=== PATIENT | female | born 1990 ===

== ENCOUNTER 2018-12-20 18:10 | Inpatient (IN) | payer OTHER ==
[~2018-12-20] VITALS: Ht 167.6 cm; Wt 100.5 kg
[2018-12-20] MEDS ORDERED: HYDROmorphONE 0.5 MG/0.5 ML SYG IV PRN (20:30)
[2018-12-20] MEDS ORDERED: oxyCODONE 5 MG TAB PO PRN (20:30)
[2018-12-20 20:34] VITALS: BP 109/68; PULSE 64; RESP 18
[2018-12-20] MEDS: DOCUSATE SODIUM 100 MG CAP PO SCH (21:00)
[2018-12-20 21:09] VITALS: Ht 167.6 cm; Wt 100.5 kg
[2018-12-20] MEDS: METHOCARBAMOL 500 MG TAB PO SCH (21:42)
[2018-12-20] MEDS: ENOXAPARIN 30 MG/0.3 ML SYG SC SCH (21:47)
[2018-12-20] MEDS ORDERED: MAGNESIUM HYDROXIDE 30ML CUP PO PRN (22:30)
[2018-12-20] MEDS ORDERED: ONDANSETRON 4 MG INJ IV PRN (22:30)
[2018-12-20] MEDS ORDERED: LACTULOSE 30ML CUP PO PRN (22:30)
[2018-12-20] MEDS ORDERED: ACETAMINOPHEN 325 MG TAB PO PRN (22:30)
[2018-12-20] MEDS ORDERED: SENNA TAB PO PRN (22:30)
[2018-12-20] MEDS ORDERED: BISACODYL (EC) 5 MG TAB PO PRN (22:30)
[2018-12-20] MEDS ORDERED: BISACODYL 10 MG SUPP PR PRN (22:30)
[2018-12-20] MEDS: oxyCODONE 5 MG TAB PO PRN (23:02)
[2018-12-21] MEDS: IBUPROFEN 600 MG TAB PO SCH ×5 (00:01→23:54)
[2018-12-21 02:00] VITALS: BP 118/67; PULSE 68; RESP 18
[2018-12-21 07:00] VITALS: BP 93/45; PULSE 65; RESP 18
[2018-12-21] MEDS: oxyCODONE 5 MG TAB PO PRN ×2 (08:47→21:18)
[2018-12-21] MEDS: METHOCARBAMOL 500 MG TAB PO SCH ×3 (08:47→21:17)
[2018-12-21] MEDS: DOCUSATE SODIUM 100 MG CAP PO SCH ×2 (08:48→21:17)
[2018-12-21] MEDS: ENOXAPARIN 30 MG/0.3 ML SYG SC SCH ×2 (08:50→21:16)
[2018-12-21] MEDS: POLYETHYLENE GLYCOL 17 GM PACKET PO SCH ×3 (09:00→21:00)
[2018-12-21] MEDS ORDERED: DOCUSATE SODIUM 100 MG CAP PO SCH (09:00)
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
[2018-12-21] MEDS: MAGNESIUM HYDROXIDE 30ML CUP PO SCH (12:07)
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
[2018-12-21 14:00] VITALS: BP 93/49; PULSE 57; RESP 18
[2018-12-21 19:56] VITALS: BP 108/71; PULSE 72; RESP 18
[2018-12-22 02:47] VITALS: BP 119/77; PULSE 84; RESP 18
[2018-12-22] MEDS: IBUPROFEN 600 MG TAB PO SCH ×4 (06:18→23:51)
[2018-12-22 07:30] VITALS: BP 97/56; PULSE 60; RESP 18
[2018-12-22] MEDS: MAGNESIUM HYDROXIDE 30ML CUP PO SCH (09:00)
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
[2018-12-22] MEDS: POLYETHYLENE GLYCOL 17 GM PACKET PO SCH ×2 (09:47→20:37)
[2018-12-22] MEDS: DOCUSATE SODIUM 100 MG CAP PO SCH ×2 (09:47→20:34)
[2018-12-22] MEDS: METHOCARBAMOL 500 MG TAB PO SCH ×3 (09:47→20:35)
[2018-12-22] MEDS: ENOXAPARIN 30 MG/0.3 ML SYG SC SCH ×2 (09:56→20:38)
[2018-12-22] MEDS: oxyCODONE 5 MG TAB PO PRN ×3 (12:37→20:36)
--- NOTE | 2018-12-22 13:11 | PN ---
Date/Time of Note Date/Time of Note DATE: 12/22/18 TIME: 13:11 Objective Vital Signs Date Temp Pulse Resp B/P (MAP) Pulse Ox O2 O2 Flow FiO2 Time Delivery Rate 12/22/18 98.0 60 18 97/56 (70) 97 Room Air 07:30 Intake and Output 12/21/18 12/21/18 12/22/18 1515:00 23:00 07:00 IntakeIntake Total 1200 ml OutputOutput Total 800 ml BalanceBalance 400 ml Exam INTERDISCIPLINARY TEAM CONFERENCE Physical Exam: Pulm-cta Abd-soft BOWEL- Cont BLADDER-Cont SKIN- healing OT- DRESSING-min/max BATHING-mod/max TOILETING-mod PT- BED MOBILITY-min/mod TRANSFERS-mod/min AMBULATION-min 100 feet SPEECH- COGNITION- full assessment pending A/P- Interdisciplinary team conference held today. Please see interdisciplinary sheet. Working toward d.c. on 12/27 with post discharge follow up of physical therapy, occupational therapy. Results/Medications Result Diagram: 12/22/18 0638 12/22/18 0637 Results 24 hrs Laboratory Tests Test 12/22/18 06:37 12/22/18 06:38 Sodium Level 139 Potassium Level 4.4 Chloride Level 107 Carbon Dioxide Level 27 Anion Gap 5 Blood Urea Nitrogen 17 Creatinine 0.64 Est Glomerular Filtrat Rate mL/min > 60 Glucose Level 91 Calcium Level 9.3 Phosphorus Level 4.6 Magnesium Level 2.2 White Blood Count 6.6 Red Blood Count 3.47 L Hemoglobin 10.2 L Hematocrit 32.7 L Mean Corpuscular Volume 94.2 Mean Corpuscular Hemoglobin 29.4 Mean Corpuscular Hemoglobin Concent 31.2 L Red Cell Distribution Width 13.8 Platelet Count 498 H Mean Platelet Volume 10.5 H Immature Granulocytes % 1.400 H Neutrophils % 49.6 Lymphocytes % 30.2 Monocytes % 14.7 H Eosinophils % 3.6 Basophils % 0.5 Nucleated Red Blood Cells % 0.0 Immature Granulocytes # 0.090 H Neutrophils # 3.3 Lymphocytes # 2.0 Monocytes # 1.0 H Eosinophils # 0.2 Basophils # 0.0 Nucleated Red Blood Cells # 0.0 Medications Current Medications Docusate Sodium (Colace) 100 mg BID PO Last administered on 12/22/18at 09:47; Admin Dose 100 MG; Start 12/20/18 at 21:00 Enoxaparin Sodium (Lovenox) 30 mg BID SC Last administered on 12/22/18at 09:56; Admin Dose 30 MG; Start 12/20/18 at 21:00 Ibuprofen (Motrin) 600 mg Q6 PO Last administered on 12/22/18at 12:08; Admin Dose 600 MG; Start 12/21/18 at 00:00 Methocarbamol (Robaxin) 500 mg TID PO Last administered on 12/22/18at 12:08; Admin Dose 500 MG; Start 12/20/18 at 21:00 Oxycodone HCl (Roxicodone) 5 mg Q4H PRN PO MILD PAIN LEVEL 1-3; Start 12/20/18 at 20:30 Oxycodone HCl (Roxicodone) 10 mg Q4H PRN PO MODERATE PAIN LEVEL 4-6 Last administered on 12/22/18at 12:37; Admin Dose 10 MG; Start 12/20/18 at 20:30 Magnesium Hydroxide (Milk Of Mag) 30 ml BID PRN PO CONSTIPATION; Start 12/20/18 at 22:30 Lactulose (Enulose) 20 gm DAILY PRN PO CONSTIPATION; Start 12/20/18 at 22:30 Bisacodyl (Dulcolax Supp) 10 mg DAILY PRN [place] CONSTIPATION; Start 12/20/18 at 22:30 Acetaminophen (Tylenol Tab) 650 mg Q4H PRN PO PAIN; Start 12/20/18 at 22:30 Bisacodyl (Dulcolax) 5 mg DAILY PRN PO CONSTIPATION; Start 12/20/18 at 22:30 Ondansetron HCl (Zofran Tab) 4 mg Q6H PRN PO NAUSEA AND/OR VOMITING; Start 12/20/18 at 22:30 Ondansetron HCl (Zofran Inj) 4 mg Q6H PRN IV NAUSEA AND/OR VOMITING; Start 12/20/18 at 22:30 Senna (Senokot) 1 tab HS PRN PO CONSTIPATION; Start 12/20/18 at 22:30 Polyethylene Glycol (Miralax) 17 gm BID PO ; Start 12/22/18 at 21:00 ARASH OATES MD Dec 22, 2018 13:11
[2018-12-22 14:00] VITALS: BP 107/60; PULSE 76; RESP 18
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
[2018-12-22 19:54] VITALS: BP 121/58; PULSE 72; RESP 18
[2018-12-23 02:00] VITALS: BP 116/62; PULSE 68; RESP 18
[2018-12-23] MEDS: oxyCODONE 5 MG TAB PO PRN ×4 (04:11→21:01)
[2018-12-23] MEDS: IBUPROFEN 600 MG TAB PO SCH ×4 (06:35→23:58)
[2018-12-23 07:00] VITALS: BP 98/52; PULSE 58; RESP 18
[2018-12-23 08:59] VITALS: BP 99/59; PULSE 68
[2018-12-23] MEDS: POLYETHYLENE GLYCOL 17 GM PACKET PO SCH ×2 (09:00→20:53)
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
[2018-12-23] MEDS: METHOCARBAMOL 500 MG TAB PO SCH ×3 (10:06→20:53)
[2018-12-23] MEDS: DOCUSATE SODIUM 100 MG CAP PO SCH ×2 (10:07→20:53)
[2018-12-23] MEDS: ENOXAPARIN 30 MG/0.3 ML SYG SC SCH ×2 (10:09→20:54)
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
[2018-12-23 14:00] VITALS: BP 84/53; PULSE 78; RESP 18
[2018-12-23 15:30] VITALS: BP 102/63; PULSE 70
[2018-12-23 19:47] VITALS: BP 100/53; PULSE 69; RESP 17
[2018-12-24] MEDS: IBUPROFEN 600 MG TAB PO SCH ×4 (06:41→23:47)
[2018-12-24 07:00] VITALS: BP 94/51; PULSE 64; RESP 18
[2018-12-24] MEDS: METHOCARBAMOL 500 MG TAB PO SCH ×3 (08:16→20:39)
[2018-12-24] MEDS: DOCUSATE SODIUM 100 MG CAP PO SCH ×2 (08:16→20:36)
[2018-12-24] MEDS: POLYETHYLENE GLYCOL 17 GM PACKET PO SCH ×2 (08:16→20:43)
[2018-12-24] MEDS: oxyCODONE 5 MG TAB PO PRN ×3 (08:17→20:37)
[2018-12-24] MEDS: ENOXAPARIN 30 MG/0.3 ML SYG SC SCH ×2 (08:19→20:39)
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
[2018-12-24 14:00] VITALS: BP 89/64; PULSE 68; RESP 18
[2018-12-24 20:10] VITALS: BP 99/54; PULSE 66; RESP 18
[2018-12-25] MEDS: IBUPROFEN 600 MG TAB PO SCH ×3 (06:22→17:44)
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
[2018-12-25 08:00] VITALS: BP 107/71; PULSE 54; RESP 18
[2018-12-25] MEDS: POLYETHYLENE GLYCOL 17 GM PACKET PO SCH ×2 (08:52→21:00)
[2018-12-25] MEDS: METHOCARBAMOL 500 MG TAB PO SCH ×3 (08:53→20:13)
[2018-12-25] MEDS: oxyCODONE 5 MG TAB PO PRN ×3 (08:53→19:38)
[2018-12-25] MEDS: DOCUSATE SODIUM 100 MG CAP PO SCH ×2 (08:53→20:14)
[2018-12-25] MEDS: ENOXAPARIN 30 MG/0.3 ML SYG SC SCH ×2 (08:56→20:13)
[2018-12-25 14:00] VITALS: BP 118/60; PULSE 88; RESP 18
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
[2018-12-25 19:13] VITALS: BP 116/59; PULSE 64; RESP 18
[2018-12-26] MEDS: IBUPROFEN 600 MG TAB PO SCH ×5 (00:32→23:55)
[2018-12-26] MEDS: oxyCODONE 5 MG TAB PO PRN ×3 (00:42→21:04)
[2018-12-26 02:00] VITALS: BP 112/65; PULSE 68; RESP 18
[2018-12-26 07:00] VITALS: BP 90/52; PULSE 64; RESP 18
[2018-12-26] MEDS: POLYETHYLENE GLYCOL 17 GM PACKET PO SCH ×3 (09:00→23:57)
[2018-12-26] MEDS: DOCUSATE SODIUM 100 MG CAP PO SCH ×2 (09:44→21:04)
[2018-12-26] MEDS: METHOCARBAMOL 500 MG TAB PO SCH ×3 (09:44→21:04)
[2018-12-26] MEDS: ENOXAPARIN 30 MG/0.3 ML SYG SC SCH ×2 (09:46→21:06)
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
[2018-12-26] MEDS: ONDANSETRON 4 MG TAB PO PRN (12:51)
[2018-12-26 14:00] VITALS: BP 101/63; PULSE 69; RESP 18
[2018-12-26 20:00] VITALS: BP 106/59; PULSE 60; RESP 18
[2018-12-27 02:00] VITALS: BP 151/62; PULSE 82; RESP 18
[2018-12-27] MEDS: IBUPROFEN 600 MG TAB PO SCH ×4 (06:00→23:58)
[2018-12-27] MEDS: oxyCODONE 5 MG TAB PO PRN ×2 (06:15→17:54)
[2018-12-27 07:30] VITALS: BP 94/50; PULSE 54; RESP 18
[2018-12-27] MEDS: POLYETHYLENE GLYCOL 17 GM PACKET PO SCH ×2 (09:01→20:31)
[2018-12-27] MEDS: METHOCARBAMOL 500 MG TAB PO SCH ×3 (09:01→20:29)
[2018-12-27] MEDS: DOCUSATE SODIUM 100 MG CAP PO SCH ×2 (09:01→20:29)
[2018-12-27] MEDS: ENOXAPARIN 30 MG/0.3 ML SYG SC SCH ×2 (09:02→20:30)
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
[2018-12-27] MEDS: DICLOFENAC SODIUM 1% GEL 100 GM TUBE TP SCH ×3 (12:18→20:32)
[2018-12-27 14:00] VITALS: BP 95/55; PULSE 62; RESP 18
[2018-12-27 19:59] VITALS: BP 116/70; PULSE 86; RESP 18
[2018-12-27] MEDS ORDERED: MELATONIN 5 MG TABLET PO PRN (21:00)
[2018-12-28 02:00] VITALS: BP 100/54; PULSE 60; RESP 16
[2018-12-28] MEDS: IBUPROFEN 600 MG TAB PO SCH ×3 (06:12→17:29)
[2018-12-28 07:00] VITALS: BP 97/56; PULSE 54; RESP 18
[2018-12-28 08:47] VITALS: BP 107/66; PULSE 78; RESP 18
[2018-12-28] MEDS: oxyCODONE 5 MG TAB PO PRN ×2 (08:47→13:04)
[2018-12-28] MEDS: ONDANSETRON 4 MG TAB PO PRN (08:48)
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
[2018-12-28] MEDS: POLYETHYLENE GLYCOL 17 GM PACKET PO SCH ×2 (09:51→20:23)
[2018-12-28] MEDS: DICLOFENAC SODIUM 1% GEL 100 GM TUBE TP SCH ×4 (09:53→20:23)
[2018-12-28] MEDS: ENOXAPARIN 30 MG/0.3 ML SYG SC SCH ×2 (09:58→20:22)
[2018-12-28] MEDS: DOCUSATE SODIUM 100 MG CAP PO SCH ×2 (09:59→20:22)
[2018-12-28] MEDS: METHOCARBAMOL 500 MG TAB PO SCH ×3 (09:59→20:22)
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
[2018-12-28 14:00] VITALS: BP 93/54; PULSE 67; PULSE 99; RESP 18
[2018-12-28 20:19] VITALS: BP 98/54; PULSE 78; RESP 18
[2018-12-29 02:00] VITALS: BP 106/63; PULSE 67; RESP 18
[2018-12-29] MEDS: IBUPROFEN 600 MG TAB PO SCH ×5 (06:17→23:44)
[2018-12-29 08:30] VITALS: BP_SYST 93; BP_DIAS 50; BP_DIAS 52; PULSE 61; PULSE 66; RESP 18
[2018-12-29] MEDS: METHOCARBAMOL 500 MG TAB PO SCH ×3 (08:31→20:39)
[2018-12-29] MEDS: POLYETHYLENE GLYCOL 17 GM PACKET PO SCH ×2 (08:31→20:39)
[2018-12-29] MEDS: oxyCODONE 5 MG TAB PO PRN ×4 (08:31→23:43)
[2018-12-29] MEDS: DOCUSATE SODIUM 100 MG CAP PO SCH ×2 (08:31→20:39)
[2018-12-29] MEDS: DICLOFENAC SODIUM 1% GEL 100 GM TUBE TP SCH ×4 (08:32→20:46)
[2018-12-29] MEDS: ENOXAPARIN 30 MG/0.3 ML SYG SC SCH ×2 (08:36→20:44)
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
--- NOTE | 2018-12-29 13:18 | PN ---
Date/Time of Note Date/Time of Note DATE: 12/29/18 TIME: 13:18 Objective Vital Signs Date Temp Pulse Resp B/P (MAP) Pulse Ox O2 O2 Flow FiO2 Time Delivery Rate 12/29/18 98.6 66 18 93/52 (66) 96 Room Air 08:30 Intake and Output 12/28/18 12/28/18 12/29/18 1515:00 23:00 07:00 IntakeIntake Total 1900 ml 250 ml OutputOutput Total 800 ml BalanceBalance 1100 ml 250 ml Exam INTERDISCIPLINARY TEAM CONFERENCE Face to face encounter to review dc plan and interdisciplinary conference BOWEL- Cont BLADDER-Cont SKIN- intact OT- DRESSING-sba BATHING-sba TOILETING-sba PT- BED MOBILITY-s TRANSFERS-s AMBULATION-s 200 feet SPEECH- COGNITION- WNL A/P- Interdisciplinary team conference held today. Please see interdisciplinary sheet. Working toward d.c. on 12/31 with post discharge follow up of physical therapy, occupational therapy. Results/Medications Result Diagram: 12/27/18 0644 12/27/18 0644 Medications Current Medications Docusate Sodium (Colace) 100 mg BID PO Last administered on 12/29/18 08:31; Admin Dose 100 MG; Start 12/20/18 at 21:00 Enoxaparin Sodium (Lovenox) 30 mg BID SC Last administered on 12/29/18 08:36; Admin Dose 30 MG; Start 12/20/18 at 21:00 Ibuprofen (Motrin) 600 mg Q6 PO Last administered on 12/29/18 12:15; Admin Dose 600 MG; Start 12/21/18 at 00:00 Methocarbamol (Robaxin) 500 mg TID PO Last administered on 12/29/18 12:15; Admin Dose 500 MG; Start 12/20/18 at 21:00 Oxycodone HCl (Roxicodone) 5 mg Q4H PRN PO MILD PAIN LEVEL 1-3; Start 12/20/18 at 20:30 Oxycodone HCl (Roxicodone) 10 mg Q4H PRN PO MODERATE PAIN LEVEL 4-6 Last administered on 12/29/18 08:31; Admin Dose 10 MG; Start 12/20/18 at 20:30 Magnesium Hydroxide (Milk Of Mag) 30 ml BID PRN PO CONSTIPATION; Start 12/20/18 at 22:30 Lactulose (Enulose) 20 gm DAILY PRN PO CONSTIPATION; Start 12/20/18 at 22:30 Bisacodyl (Dulcolax Supp) 10 mg DAILY PRN [place] CONSTIPATION; Start 12/20/18 at 22:30 Acetaminophen (Tylenol Tab) 650 mg Q4H PRN PO PAIN; Start 12/20/18 at 22:30 Bisacodyl (Dulcolax) 5 mg DAILY PRN PO CONSTIPATION; Start 12/20/18 at 22:30 Ondansetron HCl (Zofran Tab) 4 mg Q6H PRN PO NAUSEA AND/OR VOMITING Last administered on 12/28/18at 08:48; Admin Dose 4 MG; Start 12/20/18 at 22:30 Ondansetron HCl (Zofran Inj) 4 mg Q6H PRN IV NAUSEA AND/OR VOMITING; Start 12/20/18 at 22:30 Senna (Senokot) 1 tab HS PRN PO CONSTIPATION; Start 12/20/18 at 22:30 Polyethylene Glycol (Miralax) 17 gm BID PO Last administered on 12/28/18at 20:23; Admin Dose 17 GM; Start 12/22/18 at 21:00 Diclofenac Sodium (Voltaren 1% Gel) 4 gm QID TP Last administered on 12/29/18at 08:32; Admin Dose 4 GM; Start 12/27/18 at 13:00 Melatonin (Melatonin) 5 mg HS PRN PO INSOMNIA Last administered on 12/27/18at 23:58; Admin Dose 5 MG; Start 12/27/18 at 21:00 ARASH OATES MD Dec 29, 2018 13:18
[2018-12-29 19:18] VITALS: BP 102/57; PULSE 67; RESP 18
[2018-12-29] MEDS ORDERED: MAGNESIUM HYDROXIDE 30ML CUP PO PRN (22:00)
[2018-12-30 02:00] VITALS: BP 97/54; PULSE 63; RESP 18
[2018-12-30] MEDS: IBUPROFEN 600 MG TAB PO SCH (06:31)
[2018-12-30] MEDS: oxyCODONE 5 MG TAB PO PRN ×4 (06:31→22:11)
[2018-12-30 07:30] VITALS: BP 101/59; PULSE 60; RESP 20
[2018-12-30] MEDS ORDERED: CALCIUM CARBONATE 500 MG CHEW TAB PO PRN ×2 (08:00→12:30)
[2018-12-30] MEDS ORDERED: IBUPROFEN 600 MG TAB PO PRN (08:30)
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
[2018-12-30] MEDS: METHOCARBAMOL 500 MG TAB PO SCH ×3 (09:15→20:50)
[2018-12-30] MEDS: POLYETHYLENE GLYCOL 17 GM PACKET PO SCH ×2 (09:16→20:50)
[2018-12-30] MEDS: PANTOPRAZOLE (EC) 40 MG TAB PO SCH (09:16)
[2018-12-30] MEDS: DOCUSATE SODIUM 100 MG CAP PO SCH ×2 (09:16→20:50)
[2018-12-30] MEDS: ENOXAPARIN 30 MG/0.3 ML SYG SC SCH ×2 (09:16→21:12)
[2018-12-30] MEDS: DICLOFENAC SODIUM 1% GEL 100 GM TUBE TP SCH ×4 (09:17→20:55)
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
[2018-12-30 14:00] VITALS: BP 106/66; PULSE 59; RESP 18
[2018-12-30 20:00] VITALS: BP 110/78; PULSE 65; RESP 18
[2018-12-30] MEDS: ONDANSETRON 4 MG TAB PO PRN (23:49)
[2018-12-31 02:07] VITALS: BP 85/53; PULSE 63; RESP 18
[2018-12-31 02:08] VITALS: BP 96/50; PULSE 52; RESP 18
[2018-12-31] MEDS: PANTOPRAZOLE (EC) 40 MG TAB PO SCH (06:29)
[2018-12-31] MEDS: oxyCODONE 5 MG TAB PO PRN ×2 (06:29→10:46)
[2018-12-31 07:30] VITALS: BP 93/54; PULSE 57; RESP 18
[2018-12-31] MEDS: POLYETHYLENE GLYCOL 17 GM PACKET PO SCH (08:14)
[2018-12-31] MEDS: METHOCARBAMOL 500 MG TAB PO SCH (08:14)
[2018-12-31] MEDS: DOCUSATE SODIUM 100 MG CAP PO SCH (08:14)
[2018-12-31] MEDS: DICLOFENAC SODIUM 1% GEL 100 GM TUBE TP SCH (08:15)
[2018-12-31] MEDS: ENOXAPARIN 30 MG/0.3 ML SYG SC SCH (08:19)
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
== END 2018-12-31 11:00 | disposition home health service (06) | DRG 560 ==
LOC: VRC 20:05
PROVIDERS: ADMIT Physical Medicine & Rehabilitation; ATTEND Internal Medicine
PROC: F07Z5ZZ Bed Mobility Treatment (ICD-10-PCS; principal; 2018-12-20)
PROC: F08Z2ZZ Grooming/Personal Hygiene Treatment (ICD-10-PCS; 2018-12-20)
PROC: F06Z6ZZ Communicative/Cognitive Integration Skills Treatment (ICD-10-PCS; 2018-12-20)
DX: S32.591D Other specified fracture of right pubis, subsequent encounter for fracture with routine healing (principal); N39.0 Urinary tract infection, site not specified; S62.102D Fracture of unspecified carpal bone, left wrist, subsequent encounter for fracture with routine healing; S32.10XD Unspecified fracture of sacrum, subsequent encounter for fracture with routine healing; R52 Pain, unspecified; R31.9 Hematuria, unspecified; D64.9 Anemia, unspecified; K59.00 Constipation, unspecified; F06.31 Mood disorder due to known physiological condition with depressive features; F43.10 Post-traumatic stress disorder, unspecified; D47.3 Essential (hemorrhagic) thrombocythemia
CPT/HCPCS: 80048; 80053; 80076; 81001; 83735; 84100; 85025; 86704; 86709; 86803; 87081; 87086; 87340; 90686; 92507; 97110; 97112; 97116; 97163; 97166; 97530; 97535; J1650